=== PATIENT | female | born 1950 | race African-American/Black ===

== ENCOUNTER 2016-11-22 11:52 | Inpatient (IN) | payer BC, OTHER ==
[~2016-11-22] VITALS: Ht 139.7 cm; Wt 72.9 kg
[~2016-11-22 11:52] MED LIST: AMLO-218 PO; DOCU250C58 PO; METO5TAB2 PO; PANT40TA4 PO
[2016-11-22] MEDS ORDERED: SOD CHLORIDE 0.9% 500 ML IV STA (12:21)
[2016-11-22] MEDS ORDERED: ONDANSETRON 4 MG INJ IV STA ×2 (12:21→15:22)
[2016-11-22] MEDS ORDERED: GABA300C16 PO (13:05)
[2016-11-22 13:06] LABS: ADD SCAN DIFF NO
[2016-11-22 13:11] LABS: BASOPHILS % 0.2 % (0.0-2.0); EOSINOPHILS % 0.3 % (0.0-7.0); HEMATOCRIT 45.7 % (37.0-47.0); LYMPHOCYTES # 2.1 10^3/ul (0.8-2.9); LYMPHOCYTES % 21.8 % (15.0-51.0); MEAN CORPUSCULAR HEMOGLOBIN 27.9 pg (29.0-33.0); MEAN CORPUSCULAR HGB CONC 32.8 g/dl (32.0-37.0); MEAN CORPUSCULAR VOLUME 85.1 fl (82.0-101.0); MEAN PLATELET VOLUME 9.9 fl (7.4-10.4); MONOCYTE # 0.5 10^3/ul (0.3-0.9); MONOCYTES % 4.9 % (0.0-11.0); NEUTROPHIL # 6.9 10^3/ul (1.6-7.5); NEUTROPHILS % 72.3 % (39.0-77.0); PLATELET COUNT 355 10^3/UL (140-415); RED BLOOD COUNT 5.37 10^6/ul (4.20-5.40); WHITE BLOOD COUNT 9.6 10^3/ul (4.8-10.8)
[2016-11-22 13:12] LABS: ADD UMIC YES; URINE BILIRUBIN (Dip) NEGATIVE (NEGATIVE); URINE BLOOD (Dip) 1+ (NEGATIVE); URINE COLOR LT. YELLOW (YELLOW); URINE GLUCOSE (Dip) NEGATIVE (NEGATIVE); URINE KETONES (Dip) NEGATIVE (NEGATIVE); URINE LEUKOCYTE ESTERASE (Dip) NEGATIVE (NEGATIVE); URINE NITRITE (Dip) NEGATIVE (NEGATIVE); URINE TOTAL PROTEIN (Dip) 2+ (NEGATIVE); URINE UROBILINOGEN (Dip) 0.2 E.U./dL (0.1-1.0)
--- NOTE | 2016-11-22 13:24 | RADRPT ---
PROCEDURE: XR Chest. CLINICAL INDICATION: Abdomen pain. Chest pain. TECHNIQUE: Single frontal view. COMPARISON: None. FINDINGS: The lungs are clear. The heart size is normal. There is no pleural effusion. There is no pneumothorax. IMPRESSION: 1. Normal chest radiograph. RPTAT: QQ .Oskar Rocha MD, MD Date Time Electronically viewed and signed by .Oskar Rocha MD, on 11/22/2016 13:24 .R/
[2016-11-22 13:25] LABS: INR 1.05; PARTIAL THROMBOPLASTIN TIME 28.7 Sec (25.0-35.0); PROTIME 13.7 Sec (12.2-14.2); PT RATIO 1.1
[2016-11-22 13:26] LABS: ALBUMIN 4.5 g/dl (3.3-4.9); CHLORIDE 104 mmol/L (97-110)
[2016-11-22 13:27] LABS: POTASSIUM 3.5 mmol/L (3.5-5.1); SODIUM 145 mmol/L (135-144); SQUAMOUS EPITHELIAL CELL,UR FEW; URINE RBCS 0-2 /HPF (0)
[2016-11-22] MEDS ORDERED: SOD CHLORIDE 0.9% 1,000 ML IV STA (13:28)
[2016-11-22 13:29] LABS: ALBUMIN/GLOBULIN RATIO 0.93; ANION GAP 20 (8-16); ASPARTATE AMINO TRANSFERASE 31 IU/L (15-46); BILIRUBIN,INDIRECT 0.5 mg/dl (0-1.1); BILIRUBIN,TOTAL 0.5 mg/dl (0.2-1.3); CARBON DIOXIDE 25 mmol/L (21-31); CREATININE 0.68 mg/dl (0.44-1.00); TOTAL PROTEIN 9.3 g/dl (6.1-8.1)
[2016-11-22 13:30] LABS: ALANINE AMINOTRANSFERASE 28 IU/L (13-69); ALKALINE PHOSPHATASE 131 IU/L (42-121); BLOOD UREA NITROGEN 10 mg/dl (7-20); CALCIUM 9.7 mg/dl (8.4-10.2); GLUCOSE 230 mg/dl (70-220)
[2016-11-22] MEDS ORDERED: METOCLOPRAMIDE 10 MG INJ IV ONE (13:30)
[2016-11-22 13:42] LABS: TROPONIN-I < 0.012 ng/ml (0.00-0.12)
[2016-11-22] MEDS ORDERED: KETOROLAC 15 MG INJ IV STA (13:50)
[2016-11-22] MEDS ORDERED: morphine 4 MG/ML VIAL IV STA (13:54)
[2016-11-22] MEDS ORDERED: HYDROmorphONE 1 MG/ML SYG IV STA (15:22)
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
[2016-11-22] MEDS ORDERED: ACETAMINOPHEN 325 MG TAB PO PRN (17:00)
[2016-11-22] MEDS ORDERED: ONDANSETRON 4 MG INJ IV PRN ×2 (17:00)
[2016-11-22] MEDS ORDERED: HYDROmorphONE 1 MG/ML SYG IV PRN (17:00)
[2016-11-22 18:51] VITALS: TEMP 97.6
[2016-11-22] MEDS: AMLODIPINE 10 MG TAB PO SCH (19:13)
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
[2016-11-22] MEDS: GABAPENTIN 300 MG CAP PO SCH (21:00)
[2016-11-22] MEDS: PANTOPRAZOLE (EC) 40 MG TAB PO SCH (21:00)
[2016-11-22 21:44] VITALS: BP 145/76; RESP 19
[2016-11-22 21:50] VITALS: Ht 139.7 cm; Wt 72.9 kg
[2016-11-22] MEDS: SOD CHLORIDE 0.9% 1,000 ML IV SCH (21:54)
[2016-11-23] MEDS: SOD CHLORIDE 0.9% 1,000 ML IV SCH ×3 (03:00→22:39)
[2016-11-23 07:32] VITALS: BP 147/74; RESP 18
[2016-11-23] MEDS: GABAPENTIN 300 MG CAP PO SCH ×3 (09:00→21:12)
[2016-11-23] MEDS: AMLODIPINE 10 MG TAB PO SCH (09:44)
[2016-11-23] MEDS: PANTOPRAZOLE (EC) 40 MG TAB PO SCH ×2 (09:44→21:12)
--- NOTE | 2016-11-23 11:17 | PN ---
Date/Time of Note Date/Time of Note DATE: 11/23/16 TIME: 11:11 Assessment/Plan VTE Prophylaxis VTE Prophylaxis Intervention: SCD's Lines/Catheters IV Catheter Type (from Nrs): Peripheral IV Urinary Cath still in place: No Assessment/Plan Assessment/Plan 1. Severe nausea and vomiting with inability to tolerate p.o. liquids. 2. severe dehydration causing persistent dizziness 3. History of hiatal hernia and possible bowel resection. 4. acute hypernatremia due to dehydration PLAN: Toi Dick[place] Start full liquid diet, advance as tolerated will need more IVF for hydration IV access to reestablish today,if needed then ok to do PICC line SCD for DVT prophylaxis BP stable Subjective 24 Hr Interval Summary Free Text/Dictation still not tolerating diet, yet, NPO, IV access lost Exam/Review of Systems Vital Signs Vitals Vital Signs Date Time Temp Pulse Resp B/P Pulse Ox O2 Delivery O2 Flow Rate FiO2 11/23/16 07:32 97.7 107 18 147/74 96 11/22/16 18:51 Room Air Intake and Output 11/22/16 11/22/16 11/23/16 15:00 23:00 07:00 Intake Total 800 ml Balance 800 ml Exam GENERAL: Well-nourished, well-developed lady, comfortable at rest, no acute distress. VITAL SIGNS: Currently afebrile, pulse is 110, blood pressure 140/60, O2 saturation 98% on room air. NECK: Supple. No JVD or lymphadenopathy. CARDIAC: S1, S2. No added sounds or murmurs. CHEST: Diminished air entry bilaterally. No rales or wheezes. ABDOMEN: Soft, nontender. No guarding or rebound. EXTREMITIES: No cyanosis, clubbing, or edema. NEUROLOGIC: Grossly intact. No focal deficits. Results Result Diagram: 11/22/16 1255 11/22/16 1255 Results 24 hrs Laboratory Tests Test 11/22/16 12:55 11/22/16 17:31 White Blood Count 9.6 Red Blood Count 5.37 Hemoglobin 15.0 Hematocrit 45.7 Mean Corpuscular Volume 85.1 Mean Corpuscular Hemoglobin 27.9 L Mean Corpuscular Hemoglobin Concent 32.8 Red Cell Distribution Width 15.0 H Platelet Count 355 Mean Platelet Volume 9.9 Neutrophils % 72.3 Lymphocytes % 21.8 Monocytes % 4.9 Eosinophils % 0.3 Basophils % 0.2 Nucleated Red Blood Cells % 0.0 Neutrophils # 6.9 Lymphocytes # 2.1 Monocytes # 0.5 Eosinophils # 0.0 Basophils # 0.0 Nucleated Red Blood Cells # 0.0 Prothrombin Time 13.7 Prothrombin Time Ratio 1.1 INR International Normalized Ratio 1.05 Activated Partial Thromboplast Time 28.7 Urine Color LT. YELLOW Urine Clarity CLEAR Urine pH 7.0 Urine Specific [place] 1.015 Urine Ketones NEGATIVE Urine Nitrite NEGATIVE Urine Bilirubin NEGATIVE Urine Urobilinogen 0.2 E.U./dL Urine Leukocyte Esterase NEGATIVE Urine Microscopic RBC 0-2 Urine Microscopic WBC 0-2 Urine Squamous Epithelial Cells FEW Urine Hemoglobin 1+ H Urine Glucose NEGATIVE Urine Total Protein 2+ H Sodium Level 145 H Potassium Level 3.5 Chloride Level 104 Carbon Dioxide Level 25 Anion Gap 20 H Blood Urea Nitrogen 10 Creatinine 0.68 Glucose Level 230 H Calcium Level 9.7 Total Bilirubin 0.5 Direct Bilirubin 0.00 Indirect Bilirubin 0.5 Aspartate Amino Transf (AST/SGOT) 31 Alanine Aminotransferase (ALT/SGPT) 28 Alkaline Phosphatase 131 H Troponin I < 0.012 Total Protein 9.3 H Albumin 4.5 Globulin 4.80 H Albumin/Globulin Ratio 0.93 Lipase 120 Bedside Glucose 137 Medications Medications Current Medications Amlodipine Besylate (Norvasc) 10 mg DAILY PO Last administered on 11/23/16 09: 44; Admin Dose 10 MG; Start 11/22/16 at 17:00 Gabapentin (Neurontin) 300 mg TID PO ; Start 11/22/16 at 21:00 Pantoprazole 40 mg 40 mg BID PO Last administered on 11/23/16 09:44; Admin Dose 40 MG; Start 11/22/16 at 21:00 Sodium Chloride (NS) 1,000 ml @ 100 mls/hr Q10H IV Last administered on 21:54; Admin Dose 100 MLS/HR; Start 11/22/16 at 17:00 Ondansetron HCl (Zofran Inj) 4 mg Q6H PRN IV NAUSEA AND/OR VOMITING; Start at 17:00 Hydromorphone HCl (Dilaudid) 0.5 mg Q4H PRN IV PAIN; Start 11/22/16 at 17:00 CHANTEL RANDALL MD Nov 23, 2016 11:17
[2016-11-23 21:00] VITALS: BP_SYST 150; BP_SYST 153; BP_SYST 154; BP_DIAS 72; BP_DIAS 74; BP_DIAS 75; PULSE 100; PULSE 106; PULSE 112
[2016-11-23] MEDS ORDERED: hydrALAzine 20 MG INJ IV PRN (21:30)
[2016-11-23] MEDS ORDERED: SOD CHLORIDE 0.9% 250 ML IV ONE (21:30)
[2016-11-23] MEDS ORDERED: LABETALOL HCL 20MG INJ IV PRN (21:30)
[2016-11-23 22:40] VITALS: BP 145/75; RESP 18
[2016-11-24] VITALS (9 sets, daily range): BP systolic 118–140; BP diastolic 71–87; PULSE 100–119; RESP 18
[2016-11-24 05:42] LABS: ADD SCAN DIFF NO
[2016-11-24 05:52] LABS: BASOPHILS % 0.2 % (0.0-2.0); EOSINOPHILS # 0.1 10^3/ul (0.0-0.5); EOSINOPHILS % 1.3 % (0.0-7.0); HEMATOCRIT 41.5 % (37.0-47.0); HEMOGLOBIN 13.7 g/dl (12.0-16.0); LYMPHOCYTES # 2.4 10^3/ul (0.8-2.9); LYMPHOCYTES % 43.5 % (15.0-51.0); MEAN CORPUSCULAR HEMOGLOBIN 27.8 pg (29.0-33.0); MEAN CORPUSCULAR VOLUME 84.3 fl (82.0-101.0); MEAN PLATELET VOLUME 9.8 fl (7.4-10.4); MONOCYTE # 0.5 10^3/ul (0.3-0.9); MONOCYTES % 8.7 % (0.0-11.0); NEUTROPHIL # 2.5 10^3/ul (1.6-7.5); NEUTROPHILS % 46.1 % (39.0-77.0); PLATELET COUNT 310 10^3/UL (140-415); RED BLOOD COUNT 4.92 10^6/ul (4.20-5.40); RED CELL DISTRIBUTION WIDTH 14.6 % (11.5-14.5); WHITE BLOOD COUNT 5.4 10^3/ul (4.8-10.8)
[2016-11-24 05:53] LABS: INR 1.12; PROTIME 14.4 Sec (12.2-14.2); PT RATIO 1.1
[2016-11-24 05:54] LABS: PARTIAL THROMBOPLASTIN TIME 28.9 Sec (25.0-35.0)
[2016-11-24 05:59] LABS: POTASSIUM 3.5 mmol/L (3.5-5.1)
[2016-11-24 06:01] LABS: CREATININE 0.69 mg/dl (0.44-1.00)
[2016-11-24 06:02] LABS: CALCIUM 9.2 mg/dl (8.4-10.2)
[2016-11-24] MEDS: ACETAMINOPHEN 325 MG TAB PO PRN (06:08)
[2016-11-24] MEDS: PANTOPRAZOLE (EC) 40 MG TAB PO SCH ×2 (09:24→20:32)
[2016-11-24] MEDS: GABAPENTIN 300 MG CAP PO SCH ×3 (09:24→20:32)
[2016-11-24] MEDS: AMLODIPINE 10 MG TAB PO SCH (09:24)
--- NOTE | 2016-11-24 13:07 | PN ---
Date/Time of Note Date/Time of Note DATE: 11/24/16 TIME: 13:03 Assessment/Plan VTE Prophylaxis VTE Prophylaxis Intervention: SCD's Lines/Catheters IV Catheter Type (from Nrs): Peripheral IV Urinary Cath still in place: No Assessment/Plan Assessment/Plan 1. Severe nausea and vomiting with inability to tolerate p.o. liquids. 2. severe dehydration causing persistent dizziness 3. History of hiatal hernia and possible bowel resection. 4. acute hypernatremia due to dehydration 5. sevevere constipation PLAN: advance diet, agressive bowel regimen will need more IVF for hydration Colace, lactulose, Miralax SCD for DVT prophylaxis BP stable Subjective 24 Hr Interval Summary Free Text/Dictation tolerating diet, BP stable + constipation Exam/Review of Systems Vital Signs Vitals Vital Signs Date Time Temp Pulse Resp B/P Pulse Ox O2 Delivery O2 Flow Rate FiO2 11/24/16 10:00 117 118/85 11/24/16 07:30 97.5 18 98 11/22/16 18:51 Room Air Intake and Output 11/23/16 11/23/16 11/24/16 15:00 23:00 07:00 Intake Total 200 ml 1960 ml 1460 ml Balance 200 ml 1960 ml 1460 ml Exam GENERAL: Well-nourished, well-developed lady, comfortable at rest, no acute distress. VITAL SIGNS: Currently afebrile, pulse is 110, blood pressure 140/60, O2 saturation 98% on room air. NECK: Supple. No JVD or lymphadenopathy. CARDIAC: S1, S2. No added sounds or murmurs. CHEST: Diminished air entry bilaterally. No rales or wheezes. ABDOMEN: Soft, nontender. No guarding or rebound. EXTREMITIES: No cyanosis, clubbing, or edema. NEUROLOGIC: Grossly intact. No focal deficits. Results Result Diagram: 11/24/16 0510 11/24/16 0510 Results 24 hrs Laboratory Tests Test 11/24/16 05:10 White Blood Count 5.4 # Red Blood Count 4.92 Hemoglobin 13.7 Hematocrit 41.5 Mean Corpuscular Volume 84.3 Mean Corpuscular Hemoglobin 27.8 L Mean Corpuscular Hemoglobin Concent 33.0 Red Cell Distribution Width 14.6 H Platelet Count 310 Mean Platelet Volume 9.8 Neutrophils % 46.1 Lymphocytes % 43.5 Monocytes % 8.7 Eosinophils % 1.3 Basophils % 0.2 Nucleated Red Blood Cells % 0.0 Neutrophils # 2.5 Lymphocytes # 2.4 Monocytes # 0.5 Eosinophils # 0.1 Basophils # 0.0 Nucleated Red Blood Cells # 0.0 Prothrombin Time 14.4 H Prothrombin Time Ratio 1.1 INR International Normalized Ratio 1.12 Activated Partial Thromboplast Time 28.9 Sodium Level 142 Potassium Level 3.5 Chloride Level 105 Carbon Dioxide Level 26 Anion Gap 15 Blood Urea Nitrogen 8 Creatinine 0.69 Glucose Level 114 # Calcium Level 9.2 Medications Medications Current Medications Amlodipine Besylate (Norvasc) 10 mg DAILY PO Last administered on 11/24/16 09: 24; Admin Dose 10 MG; Start 11/22/16 at 17:00 Gabapentin (Neurontin) 300 mg TID PO Last administered on 11/24/16 09:24; Admin Dose 300 MG; Start 11/22/16 at 21:00 Pantoprazole 40 mg 40 mg BID PO Last administered on 11/24/16 09:24; Admin Dose 40 MG; Start 11/22/16 at 21:00 Sodium Chloride (NS) 1,000 ml @ 100 mls/hr Q10H IV Last administered on 22:39; Admin Dose 100 MLS/HR; Start 11/22/16 at 17:00 Ondansetron HCl (Zofran Inj) 4 mg Q6H PRN IV NAUSEA AND/OR VOMITING; Start at 17:00 Hydromorphone HCl (Dilaudid) 0.5 mg Q4H PRN IV PAIN; Start 11/22/16 at 17:00 Hydralazine HCl (Apresoline) 10 mg Q4H PRN IV SBP > 160; Start 11/23/16 at 21: 30 Acetaminophen (Tylenol Tab) 650 mg Q6H PRN PO PAIN AND OR ELEVATED TEMP Last administered on 11/24/16 06:08; Admin Dose 650 MG; Start 11/24/16 at 06:00 CHANTEL RANDALL MD Nov 24, 2016 13:06
[2016-11-24] MEDS ORDERED: DOCUSATE SODIUM 100 MG CAP PO PRN (13:30)
[2016-11-24] MEDS ORDERED: POLYETHYLENE GLYCOL 17 GM PACKET PO PRN (13:30)
[2016-11-24] MEDS ORDERED: LACTULOSE 30ML CUP PO PRN (13:30)
[2016-11-24] MEDS: SOD CHLORIDE 0.9% 1,000 ML IV SCH (15:43)
--- NOTE | 2016-11-24 18:43 | RADRPT ---
PROCEDURE: MR Brain without contrast. CLINICAL INDICATION: CVA. Blurred vision. TECHNIQUE: An MRI of the brain was performed on a 1.5 madan scanner utilizing the following sequen teresa: Sagittal T1 weighted, axial T2 weighted, axial FLAIR, coronal GRE, and axial diffusion weighted with ADC mapping. COMPARISON: None FINDINGS: No evidence of restricted diffusion to suggest acute or early subacute ischemic infarction. There i s no evidence of intracranial hemorrhage, mass effect, or midline shift. No extra-axial fluid collec tions are seen. No hypointense signal abnormalities are seen on the GRE images to suggest the presence of blood degr adation products. Scattered nonspecific T2 signal hyperintensity foci in the subcortical and periven tricular white matter compatible with sequelae of mild chronic microvascular ischemic injury. The brain parenchyma is normal in signal intensity and morphology with preservation of clarke white di fferentiation . Age appropriate size of the ventricles and subarachnoid spaces. Cavum septum pelluc idum et vergae compatible normal variant anatomy. The posterior fossa contents, brainstem, seventh - eighth cranial nerve complexes, pituitary axis, o rbits, paranasal sinuses, and mastoid air cells are unremarkable. Normal flow voids are visible in the proximal intracranial arteries and dural sinuses, indicating pa tency. IMPRESSION: 1. No evidence of acute or early subacute ischemic infarction. 2. No intracranial hemorrhage. 3. Mild chronic microvascular ischemic change. RPTAT:AAJJ Physician Lio Date Time Electronically viewed and signed by Physician Lio on 11/24/2016 18:42 RON/
[2016-11-25] VITALS (9 sets, daily range): BP systolic 110–159; BP diastolic 67–85; PULSE 85–116; RESP 18–20
[2016-11-25] MEDS: SOD CHLORIDE 0.9% 1,000 ML IV SCH ×3 (05:00→16:37)
[2016-11-25] MEDS: PANTOPRAZOLE (EC) 40 MG TAB PO SCH ×2 (09:41→21:13)
[2016-11-25] MEDS: AMLODIPINE 10 MG TAB PO SCH (09:41)
[2016-11-25] MEDS: GABAPENTIN 300 MG CAP PO SCH ×3 (09:41→21:12)
[2016-11-25] MEDS: ACETAMINOPHEN 325 MG TAB PO PRN (11:18)
--- NOTE | 2016-11-25 13:34 | PN ---
Date/Time of Note Date/Time of Note DATE: 11/25/16 TIME: 13:30 Assessment/Plan VTE Prophylaxis VTE Prophylaxis Intervention: SCD's Lines/Catheters IV Catheter Type (from Nrs): Peripheral IV Urinary Cath still in place: No Assessment/Plan Assessment/Plan 1. Severe nausea and vomiting with inability to tolerate p.o. liquids. 2. severe dehydration causing persistent dizziness 3. History of hiatal hernia and possible bowel resection. 4. acute hypernatremia due to dehydration 5. sevevere constipation PLAN: advance diet, agressive bowel regimen MRI brain negative will need more IVF for hydration Colace, lactulose, Miralax SCD for DVT prophylaxis BP stable d/c plan on Tuesday Subjective 24 Hr Interval Summary Free Text/Dictation dizziness improving, BP stable Exam/Review of Systems Vital Signs Vitals Vital Signs Date Time Temp Pulse Resp B/P Pulse Ox O2 Delivery O2 Flow Rate FiO2 11/25/16 08:00 98.6 76 18 110/75 96 11/22/16 18:51 Room Air Intake and Output 11/24/16 11/24/16 11/25/16 15:00 23:00 07:00 Intake Total 1150 ml 1530 ml Balance 1150 ml 1530 ml Exam GENERAL: Well-nourished, well-developed lady, comfortable at rest, no acute distress. VITAL SIGNS: Currently afebrile, pulse is 110, blood pressure 140/60, O2 saturation 98% on room air. NECK: Supple. No JVD or lymphadenopathy. CARDIAC: S1, S2. No added sounds or murmurs. CHEST: Diminished air entry bilaterally. No rales or wheezes. ABDOMEN: Soft, nontender. No guarding or rebound. EXTREMITIES: No cyanosis, clubbing, or edema. NEUROLOGIC: Grossly intact. No focal deficits. Results Result Diagram: 11/24/1650911/24/16509 Medications Medications Current Medications Amlodipine Besylate (Norvasc) 10 mg DAILY PO Last administered on 11/25/16 09: 41; Admin Dose 10 MG; Start 11/22/16 at 17:00 Gabapentin (Neurontin) 300 mg TID PO Last administered on 11/25/16 09:41; Admin Dose 300 MG; Start 11/22/16 at 21:00 Pantoprazole 40 mg 40 mg BID PO Last administered on 11/25/16 09:41; Admin Dose 40 MG; Start 11/22/16 at 21:00 Sodium Chloride (NS) 1,000 ml @ 100 mls/hr Q10H IV Last administered on 05:00; Admin Dose 100 MLS/HR; Start 11/22/16 at 17:00 Ondansetron HCl (Zofran Inj) 4 mg Q6H PRN IV NAUSEA AND/OR VOMITING; Start at 17:00 Hydromorphone HCl (Dilaudid) 0.5 mg Q4H PRN IV PAIN; Start 11/22/16 at 17:00 Hydralazine HCl (Apresoline) 10 mg Q4H PRN IV SBP > 160; Start 11/23/16 at 21: 30 Acetaminophen (Tylenol Tab) 650 mg Q6H PRN PO PAIN AND OR ELEVATED TEMP Last administered on 11/25/16 11:18; Admin Dose 650 MG; Start 11/24/16 at 06:00 Docusate Sodium (Colace) 100 mg BID PRN PO CONSTIPATION Last administered on 13:32; Admin Dose 100 MG; Start 11/24/16 at 13:30 Polyethylene Glycol (Miralax) 17 gm DAILY PRN PO CONSTIPATION; Start 11/24/16 at 13:30 Lactulose (Enulose) 20 gm Q6H PRN PO CONSTIPATION Last administered on 20:40; Admin Dose 20 GM; Start 11/24/16 at 13:30 CHANTEL RANDALL MD Nov 25, 2016 13:34
[2016-11-26] MEDS: SOD CHLORIDE 0.9% 1,000 ML IV SCH ×2 (02:06→11:00)
[2016-11-26 06:03] LABS: POTASSIUM 3.2 mmol/L (3.5-5.1)
[2016-11-26 06:06] LABS: CREATININE 0.71 mg/dl (0.44-1.00)
[2016-11-26 06:07] LABS: CALCIUM 9.2 mg/dl (8.4-10.2)
[2016-11-26 07:10] VITALS: BP 130/80; RESP 18
[2016-11-26] MEDS: AMLODIPINE 10 MG TAB PO SCH (09:03)
[2016-11-26] MEDS: GABAPENTIN 300 MG CAP PO SCH ×2 (09:03→13:06)
[2016-11-26] MEDS: PANTOPRAZOLE (EC) 40 MG TAB PO SCH (09:03)
[2016-11-26] MEDS ORDERED: POTASSIUM CHLORIDE (SR) 20 MEQ TAB PO STA (12:07)
--- NOTE | 2016-11-26 12:08 | PDOCDIS ---
Discharge Instructions CONDITION Patient Condition: Good HOME CARE INSTRUCTIONS: Special Diet: REGULAR DIET ACTIVITY: Activity Restrictions: Slowly Increase Activity Rest between Activity Avoid heavy lifting Avoid Heavy Housework FOLLOW UP/APPOINTMENTS Appointments follow up with her own PMD through HMO insurance in 1-2 week after discharge CHANTEL RANDALL MD Nov 26, 2016 12:08
[2016-11-26] MEDS ORDERED: MECL-77 PO (12:09)
--- NOTE | 2016-11-28 23:08 | DS ---
DATE OF ADMISSION: 11/22/2016 DATE OF DISCHARGE: 11/26/2016 FINAL DISCHARGE DIAGNOSES: 1. Intractable nausea, vomiting with inability to tolerate oral, causing severe dehydration. 2. Severe dehydration. 3. Intractable dizziness secondary to dehydration. 4. Acute hypernatremia secondary to dehydration. 5. Severe constipation. 6. Intractable dizziness. 7. History of hiatal hernia and possible bowel resection. CONSULTATION DONE DURING THIS HOSPITALIZATION: None. PROCEDURES PERFORMED DURING THIS HOSPITALIZATION: None. IMAGING STUDIES DONE DURING THIS HOSPITALIZATION: The patient had MRI brain done, negative for any acute finding. HOSPITAL COURSE: This is a 66-year-old female with a past medical history of hypertension, left ear deafness, history of a previous ovarian cyst, had a surgery for hysterectomy and the removal of ova ry, history of chronic arthritis who gives a history of stomach cancer and had surgery at [facility]. The patient presented with intractable nausea, vomiting, inability to tolerate p.o. She was also complaining of intractable dizziness. She got admitted for severe dehydration causing dizz iness and also the symptoms. The patient was given IV fluid for 2 to 3 days as aggressive ____, but she continued to complain of dizziness for which she had MRI brain done which was negative for any acute findings. She was given meclizine p.r.n. dizziness. She improved much better, and she gets a prescription of meclizine on discharge. DISPOSITION: To home. DISCHARGE CONDITION: Stable, improved compared to admission. DISCHARGE ACTIVITIES: As tolerated. Slowly resume to the normal baseline activity. DISCHARGE DIET: Regular diet. DISCHARGE MEDICATIONS: As per medical reconciliation. She is given prescription of meclizine p.r.n . dizziness. DISCHARGE FOLLOWUP INSTRUCTIONS: The patient is to follow up with her own primary care doctor romario her O insurance 1 to 2 weeks after discharge. She has been explained about the discharge plan, followup instructions. She understood and verbalized understanding. Dictated By: CHANTEL RANDALL MD, KP/KEITH Conf#: [id number] DID#: [id number]
== END 2016-11-26 13:32 | disposition home or self-care (01) | DRG 641 ==
LOC: E/R 11:52 → PP2 17:00
PROVIDERS: ADMIT Family Medicine; ATTEND Family Medicine
DX: E86.0 Dehydration (principal); E87.0 Hyperosmolality and hypernatremia; K59.00 Constipation, unspecified; K31.9 Disease of stomach and duodenum, unspecified; R11.2 Nausea with vomiting, unspecified; K22.0 Achalasia of cardia; K22.2 Esophageal obstruction; R42 Dizziness and giddiness; H91.92 Unspecified hearing loss, left ear; Z90.710 Acquired absence of both cervix and uterus; Z85.038 Personal history of other malignant neoplasm of large intestine; K44.9 Diaphragmatic hernia without obstruction or gangrene
CPT/HCPCS: 70551; 71010; 74176; 80048; 80053; 81001; 81003; 82962; 83036; 83690; 84484; 85025; 85610; 85730; J1170; J1885; J2270; J2405; J2765; J7030; J7040